=== PATIENT | male | born 1975 | race Caucasian/White ===

== ENCOUNTER 2016-12-06 18:43 | Emergency (ER) | payer MEDICAID ==
--- NOTE | 2016-12-06 19:50 | EDM.PDOC ---
ED HPI GENERAL MEDICAL PROBLEM - General Chief Complaint: General Stated Complaint: POSSIBLE HERNIA Time Seen by Provider: 12/06/16 19:00 Source of Information: Reports: Patient History Limitations: Reports: No limitations - History of Present Illness INITIAL COMMENTS - FREE TEXT/NARRATIVE: 41-year-old male with a right lower abdomen and groin pain for the past 3 days. It started after he was lifting a box, he had he felt some swelling in the area and has been putting heat packs and taking ibuprofen. It is still very painful today so thinks he has a hernia and wants it checked. No fevers or chills, no bowel changes. Onset: sudden (Pain started suddenly 3 days ago) Location: Reports: abdomen (Right lower quadrant and right groin) Quality: Reports: Sharp Severity: moderate Improves with: Reports: Movement Associated Symptoms: Reports: denies other symptoms right groin Pain Score (Numeric/FACES): 7 - Related Data Allergies Allergy/AdvReac Type Severity Reaction Status Date / Time codeine Allergy Intermediate Rash Verified 12/06/16 18:57 prednisone Allergy Intermediate Decreased Verified 12/06/16 18:57 Urine Output Home Meds: Home Meds Acetaminophen [Tylenol Extra Strength] 500 mg PO ASDIRECTED PRN 04/26/16 [ History] Gabapentin [Gabapentin] 400 mg PO TID 05/02/16 [History] Ibuprofen [Advil] 600 mg PO TID 06/08/16 [History] DULoxetine [Cymbalta] 60 mg PO BID 08/22/16 [History] traZODone HCl [Trazodone HCl] 50 mg PO BEDTIME 08/22/16 [History] Lisinopril 10 mg PO BID 12/06/16 [History] oxyCODONE HCl/Acetaminophen [oxyCODONE-Acetaminophen 5-325] 1 tab PO BID PRN 02/17 [History] Past Medical History - Past Health History Medical/Surgical History: Denies Medical/Surgical History HEENT History: Reports: Other (see below) Other HEENT History: dental caries Musculoskeletal History: Reports: Back pain, chronic Neurological History: Reports: Concussion Psychiatric History: Reports: Dementia - Infectious Disease History Infectious Disease History: Reports: Chicken pox - Past Surgical History Musculoskeletal Surgical History: Reports: Carpal tunnel, Other (see below) Other Musculoskeletal Surgeries/Procedures:: left thumb reconstruction Social & Family History - Tobacco Use Smoking Status *Q: Current Every Day Smoker Years of Tobacco use: 20 Packs/Tins Daily: 0.5 Second Hand Smoke Exposure: Yes - Caffeine Use Caffeine Use: Reports: Coffee, Energy drinks, Soda, Tea - Alcohol Use Days Per Week of Alcohol Use: 0 - Recreational Drug Use Recreational Drug Use: No ED ROS GENERAL - Review of Systems Review Of Systems: See Below Constitutional: Denies: fever, chills HEENT: Reports: No symptoms Respiratory: Denies: shortness of breath, cough Cardiovascular: Denies: Chest pain GI/Abdominal: Reports: Abdominal pain. Denies: Diarrhea, Nausea, Vomiting : Reports: no symptoms Skin: Reports: no symptoms Neurological: Denies: headache Psychiatric: Reports: No symptoms ED EXAM, GENERAL - Physical Exam Exam: See Below Exam Limited By: No limitations General Appearance: alert, no apparent distress Respiratory/Chest: no respiratory distress, lungs clear Cardiovascular: regular rate, rhythm GI/Abdominal: soft (Male) Exam: Other (Exam of the groin and scrotum revealed no evidence of hernia but he was very tender around the right inguinal canal) Back Exam: normal inspection Course - Vital Signs Last Recorded V/S: Last Vital Signs Temp 98.7 F 12/06/16 19:03 Pulse 110 H 12/06/16 20:01 Resp 20 12/06/16 20:01 BP 185/124 H 12/06/16 20:01 Pulse Ox 98 12/06/16 20:01 - Orders/Labs/Meds Orders: Active Orders 24 hr Category Date Time Status Abdomen Pelvis wo Cont [CT] Stat Exams 12/06/16 19:13 Taken - Re-Assessments/Exams Free Text/Narrative Re-Assessment/Exam: 12/06/16 19:49 Is no physical evidence right now of her hernia but it was recently reduced there could still be significant pain. A CT of the abdomen and pelvis was obtained to look for other sources of pain or inflammatory changes. 12/06/16 20:11 CT was normal. Patient feels that his pain is improved with pressure so he was given a six-inch Judd wrap to wrap around the waist for support. He recheck in 2 -4 days if not improving. Departure - Departure Time of Disposition: 20:20 Disposition: Home, Self-Care 01 Condition: good Clinical Impression: Strain of muscle of right groin region Instructions: Muscle Strain, [id number] Referrals: PCP,None [Primary Care Provider] - Forms: ED Department Discharge Care Plan Goals: Where wrap for comfort, ibuprofen for pain and increase activity as tolerated. Consider rechecking in 3-5 days if not improving satisfactorily. - My Orders Last 24 Hours: My Active Orders 12/06/16 19:13 Abdomen Pelvis wo Cont [CT] Stat - Assessment/Plan Last 24 Hours: My Active Orders 12/06/16 19:13 Abdomen Pelvis wo Cont [CT] Stat
[2016-12-06 20:02] VITALS: BP 185/124
== END 2016-12-06 20:20 | disposition home or self-care (01) ==
LOC: JP.ED 18:43
DX: S39.011A Strain of muscle, fascia and tendon of abdomen, initial encounter (principal); F17.210 Nicotine dependence, cigarettes, uncomplicated; Z88.5 Allergy status to narcotic agent; Z79.899 Other long term (current) drug therapy; X50.0XXA Overexertion from strenuous movement or load, initial encounter
CPT/HCPCS: 74176; 99284-25

== ENCOUNTER 2017-12-14 01:07 | Emergency (ER) | payer MEDICAID ==
[2017-12-14 01:19] VITALS: BP 147/122
[2017-12-14] MEDS ORDERED: Ketorolac 60 MG/2 ML SDV IM ONE (01:31)
[2017-12-14] MEDS ORDERED: Dental Adhesive 1 Tube DENT ONE (01:31)
--- NOTE | 2017-12-14 01:35 | EDM.PDOC ---
ED HPI GENERAL MEDICAL PROBLEM - General Chief Complaint: General Stated Complaint: TOOTHACHE Time Seen by Provider: 12/14/17 01:28 Source of Information: Reports: Patient, RN Notes Reviewed History Limitations: Reports: No Limitations - History of Present Illness INITIAL COMMENTS - FREE TEXT/NARRATIVE: 42-year-old gentleman presents emergency department day complaint of dental pain , he recently had a filling busk loose from one of his teeth earlier this evening now is in excruciating pain he does have appointment with dentistry tomorrow morning at 11:00 Right Lower Tooth/Teeth Pain Score (Numeric/FACES): 10 - Related Data Allergies Allergy/AdvReac Type Severity Reaction Status Date / Time codeine Allergy Intermediate Rash Verified 12/06/16 18:57 prednisone Allergy Intermediate Decreased Verified 12/06/16 18:57 Urine Output tramadol Allergy Rash Verified 12/14/17 01:20 Home Meds: Home Meds Gabapentin [Gabapentin] 800 mg PO QID 05/02/16 [History] Lisinopril 10 mg PO DAILY 12/06/16 [History] *Metoprolol 10 mg PO BID 12/14/17 [History] Past Medical History HEENT History: Reports: Other (See Below) Other HEENT History: dental caries Cardiovascular History: Reports: Hypertension Musculoskeletal History: Reports: Back Pain, Chronic Neurological History: Reports: Concussion Psychiatric History: Reports: Dementia - Infectious Disease History Infectious Disease History: Reports: Chicken Pox - Past Surgical History Musculoskeletal Surgical History: Reports: Carpal Tunnel, Other (See Below) Social & Family History - Tobacco Use Smoking Status *Q: Unknown Ever Smoked Years of Tobacco use: 20 Packs/Tins Daily: 0.5 Second Hand Smoke Exposure: Yes - Caffeine Use Caffeine Use: Reports: Coffee, Energy Drinks, Soda, Tea - Alcohol Use Days Per Week of Alcohol Use: 0 - Recreational Drug Use Recreational Drug Use: No ED ROS GENERAL - Review of Systems Review Of Systems: See Below Constitutional: Reports: No Symptoms HEENT: Reports: Dental Pain ED EXAM, GENERAL - Physical Exam Exam: See Below Free Text/Narrative:: Mouth mucosa is moist and pink he is missing a filling on tooth #28, very tender to touch around the tooth, no erythema or exudate noted in soft palate tongue is midline uvula is midline Exam Limited By: No Limitations General Appearance: Alert, Mild Distress Respiratory/Chest: No Respiratory Distress Course - Vital Signs Last Recorded V/S: Last Vital Signs Temp 94.3 F L 12/14/17 01:18 Pulse 95 12/14/17 01:18 Resp 16 12/14/17 01:18 BP 147/122 H 12/14/17 01:18 Pulse Ox 99 12/14/17 01:18 - Orders/Labs/Meds Meds: Medications Discontinued Medications Generic Name Dose Route Start Last Admin Trade Name Allan PRN Reason Stop Dose Admin Denture Adhesive 1 applic 12/14/17 01:31 12/14/17 01:41 Dentemp Custom DENT 12/14/17 01:32 1 applic ONETIME ONE Administration Ketorolac Tromethamine 60 mg 12/14/17 01:31 12/14/17 01:40 Toradol IM 12/14/17 01:32 60 mg ONETIME ONE Administration Departure - Departure Time of Disposition: 01:52 Disposition: Home, Self-Care 01 Condition: Good Clinical Impression: Pain, dental - Discharge Information Referrals: PCP,None [Primary Care Provider] - Forms: ED Department Discharge Additional Instructions: Use ibuprofen for baseline pain control, use hydrocodone for breakthrough pain, please follow-up with your dentist tomorrow morning at 11:00 - Assessment/Plan Plan: Assessment Acuity = acute Site and laterality = dental pain Etiology = loss of cavity tooth number 28th Manifestations = none Location of injury = Home Lab values = none Plan Provided Toradol injection for pain control [place] temp was used to create a temporary filling he will follow-up with his dentist tomorrow morning at 11:00, prescription written for hydrocodone 5/325 one tablet by mouth 3 times a day when necessary total #4 This note was dictated using [employer] voice recognition software please call with any questions on syntax or yancy.
== END 2017-12-14 02:00 | disposition home or self-care (01) ==
LOC: JP.ED 01:07
DX: K08.89 Other specified disorders of teeth and supporting structures (principal); I10 Essential (primary) hypertension; Z88.5 Allergy status to narcotic agent; Z79.899 Other long term (current) drug therapy
CPT/HCPCS: 96372; 99283-25; A9270-GY; J1885

== ENCOUNTER 2017-12-15 16:00 | Emergency (ER) | payer MEDICAID ==
[2017-12-15 16:40] VITALS: BP 152/109
--- NOTE | 2017-12-15 16:41 | EDM.PDOC ---
ED HPI GENERAL MEDICAL PROBLEM - General Chief Complaint: ENT Problem Stated Complaint: TOOTHACHE Time Seen by Provider: 12/15/17 16:25 Source of Information: Reports: Patient History Limitations: Reports: No Limitations - History of Present Illness INITIAL COMMENTS - FREE TEXT/NARRATIVE: 42-year-old male with a right mandibular dental pain for the last several days. He saw a dentist yesterday who removed his temporary filling and said he needs to just let it heal. It's very painful today. No significant swelling. Severity: Moderate Worsens with: Reports: Eating Associated Symptoms: Reports: No Other Symptoms right lower Pain Score (Numeric/FACES): 8 - Related Data Allergies Allergy/AdvReac Type Severity Reaction Status Date / Time codeine Allergy Intermediate Rash Verified 12/15/17 16:12 prednisone Allergy Intermediate Decreased Verified 12/15/17 16:12 Urine Output tramadol Allergy Rash Verified 12/15/17 16:12 Home Meds: Home Meds Gabapentin [Gabapentin] 800 mg PO QID 05/02/16 [History] Lisinopril 10 mg PO DAILY 12/06/16 [History] *Metoprolol 10 mg PO BID 12/14/17 [History] Amoxicillin 500 mg PO BID 12/15/17 [History] Methocarbamol 500 mg PO DAILY 12/15/17 [History] oxyCODONE HCl/Acetaminophen [oxyCODONE-Acetaminophen 5-325] 1 tab PO BID [History] Past Medical History HEENT History: Reports: Other (See Below) Other HEENT History: dental caries Cardiovascular History: Reports: Hypertension Musculoskeletal History: Reports: Back Pain, Chronic Neurological History: Reports: Concussion Psychiatric History: Reports: Dementia - Infectious Disease History Infectious Disease History: Reports: Chicken Pox - Past Surgical History Cardiovascular Surgical History: Reports: None Musculoskeletal Surgical History: Reports: Carpal Tunnel Social & Family History - Tobacco Use Smoking Status *Q: Current Every Day Smoker Years of Tobacco use: 20 Packs/Tins Daily: 0.4 Second Hand Smoke Exposure: Yes - Caffeine Use Caffeine Use: Reports: Coffee, Energy Drinks, Soda, Tea - Alcohol Use Days Per Week of Alcohol Use: 0 - Recreational Drug Use Recreational Drug Use: No ED ROS ENT - Review of Systems Review Of Systems: See Below Constitutional: Denies: Fever, Chills Respiratory: Denies: Shortness of Breath Cardiovascular: Denies: Chest Pain GI/Abdominal: Denies: Nausea, Vomiting ED EXAM, ENT - Physical Exam Exam: See Below Exam Limited By: No Limitations General Appearance: Alert, No Apparent Distress (Patient is not distressed but does look uncomfortable) Mouth/Throat: Other (The posterior aspect of the second canine of the right mandible appears fractured posteriorly with the dentin showing) Respiratory/Chest: No Respiratory Distress Course - Vital Signs Last Recorded V/S: Last Vital Signs Temp 97.3 F 12/15/17 16:16 Pulse 87 12/15/17 16:16 Resp 18 12/15/17 16:16 BP 152/109 H 12/15/17 16:16 Pulse Ox 100 12/15/17 16:16 - Re-Assessments/Exams Free Text/Narrative Re-Assessment/Exam: 12/15/17 16:39 This tooth looks like he needs to be repaired, or crowned. We'll fill out a dental referral for tomorrow morning, I gave him some additional Percocet to take for pain and he can continue his antibiotic. Departure - Departure Time of Disposition: 17:04 Disposition: Home, Self-Care 01 Condition: Good Clinical Impression: Fracture of tooth Qualifiers: Encounter type: initial encounter Fracture type: closed Qualified Code(s): S02.5XXA - Fracture of tooth (traumatic), initial encounter for closed fracture - Discharge Information Instructions: Tooth Injuries, [id number] Referrals: PCP,None [Primary Care Provider] - Forms: ED Department Discharge Care Plan Goals: Continue with antibiotics, take pain medication as needed and work in to the dental clinic tomorrow morning to repair your tooth.
== END 2017-12-15 17:05 | disposition home or self-care (01) ==
LOC: JP.ED 16:00
DX: S02.5XXA Fracture of tooth (traumatic), initial encounter for closed fracture (principal); I10 Essential (primary) hypertension; F17.210 Nicotine dependence, cigarettes, uncomplicated; Z88.8 Allergy status to other drugs, medicaments and biological substances; Z88.5 Allergy status to narcotic agent; Z79.899 Other long term (current) drug therapy; X58.XXXA Exposure to other specified factors, initial encounter
CPT/HCPCS: 99283

== ENCOUNTER 2017-12-17 17:43 | Emergency (ER) | payer OTHER, MEDICAID ==
[2017-12-17 18:21] VITALS: BP 160/105
[2017-12-17] MEDS ORDERED: Dental Adhesive 1 Tube DENT ONE (18:29)
--- NOTE | 2017-12-17 18:35 | EDM.PDOC ---
ED HPI GENERAL MEDICAL PROBLEM - General Chief Complaint: ENT Problem Stated Complaint: TOOTHACHE Time Seen by Provider: 12/17/17 18:24 Source of Information: Reports: Patient, Old Records, RN Notes Reviewed History Limitations: Reports: No Limitations - History of Present Illness INITIAL COMMENTS - FREE TEXT/NARRATIVE: 42-year-old gentleman presents emergency department today for ongoing dental pain, I had evaluated him a few days prior tooth #27 I believe was packed with a [place] temp, he has subsequently followed up with dentistry this tooth has been pulled, he is currently on antibiotics, his biggest issue now is the tooth directly behind that has now broken off and is experiencing pain - Related Data Allergies Allergy/AdvReac Type Severity Reaction Status Date / Time codeine Allergy Intermediate Rash Verified 12/17/17 17:58 prednisone Allergy Intermediate Decreased Verified 12/17/17 17:58 Urine Output tramadol Allergy Rash Verified 12/17/17 17:58 Home Meds: Home Meds Gabapentin [Gabapentin] 800 mg PO QID 05/02/16 [History] Lisinopril 10 mg PO DAILY 12/06/16 [History] *Metoprolol 10 mg PO BID 12/14/17 [History] Amoxicillin 500 mg PO BID 12/15/17 [History] Methocarbamol 500 mg PO DAILY 12/15/17 [History] oxyCODONE HCl/Acetaminophen [oxyCODONE-Acetaminophen 5-325] 1 tab PO BID [History] Past Medical History HEENT History: Reports: Other (See Below) Other HEENT History: dental caries Cardiovascular History: Reports: Hypertension Musculoskeletal History: Reports: Back Pain, Chronic Neurological History: Reports: Concussion Psychiatric History: Reports: Dementia - Infectious Disease History Infectious Disease History: Reports: Chicken Pox - Past Surgical History Cardiovascular Surgical History: Reports: None Musculoskeletal Surgical History: Reports: Carpal Tunnel Social & Family History - Tobacco Use Smoking Status *Q: Current Every Day Smoker Years of Tobacco use: 20 Packs/Tins Daily: 0.1 Second Hand Smoke Exposure: Yes - Caffeine Use Caffeine Use: Reports: Coffee, Energy Drinks, Soda, Tea - Alcohol Use Days Per Week of Alcohol Use: 0 - Recreational Drug Use Recreational Drug Use: No ED ROS ENT - Review of Systems Review Of Systems: See Below Constitutional: Reports: No Symptoms HEENT: Reports: Dental Pain Respiratory: Reports: No Symptoms Cardiovascular: Reports: No Symptoms GI/Abdominal: Reports: No Symptoms ED EXAM, ENT - Physical Exam Exam: See Below Text/Narrative:: Mouth mucosa is moist and pink no erythema or exudate noted in soft palate tongue is midline uvula is midline tooth #27 is missing tooth #28 has been fracture. It is tender to the touch Exam Limited By: No Limitations General Appearance: Alert, WD/WN, No Apparent Distress Respiratory/Chest: No Respiratory Distress Course - Vital Signs Last Recorded V/S: Last Vital Signs Temp 96.8 F 12/17/17 18:20 Pulse 112 H 12/17/17 18:20 Resp 16 12/17/17 18:20 BP 160/105 H 12/17/17 18:20 Pulse Ox 98 12/17/17 18:20 - Orders/Labs/Meds Orders: Active Orders 24 hr Category Date Time Status Dental Adhesive [Dentemp Custom] Med 12/17/17 18:29 Once 1 applic DENT ONETIME ONE Departure - Departure Time of Disposition: 18:35 Disposition: Home, Self-Care 01 Condition: Good Clinical Impression: Fracture of tooth Qualifiers: Encounter type: initial encounter Fracture type: closed Qualified Code(s): S02.5XXA - Fracture of tooth (traumatic), initial encounter for closed fracture - Discharge Information Referrals: PCP,None [Primary Care Provider] - Additional Instructions: Use ibuprofen for baseline pain control, use Percocet for breakthrough pain please follow-up with dentistry on Wednesday at 8:15 - My Orders Last 24 Hours: My Active Orders 12/17/17 18:29 Dental Adhesive [Dentemp Custom] 1 applic DENT ONETIME ONE - Assessment/Plan Last 24 Hours: My Active Orders 12/17/17 18:29 Dental Adhesive [Dentemp Custom] 1 applic DENT ONETIME ONE Plan: Assessment Acuity = acute Site and laterality = tooth fracture #28 Etiology = dental caries Manifestations = pain Location of injury = Home Lab values = none Plan Prescription written for Percocet 5/325 one tab by mouth 3 times a day when necessary total #20 referral was written for dentistry Wednesday at 8:15 This note was dictated using [employer] voice recognition software please call with any questions on syntax or yancy.
== END 2017-12-17 18:56 | disposition home or self-care (01) ==
LOC: JP.ED 17:43
DX: S02.5XXA Fracture of tooth (traumatic), initial encounter for closed fracture (principal); I10 Essential (primary) hypertension; F17.210 Nicotine dependence, cigarettes, uncomplicated; Z79.899 Other long term (current) drug therapy; Z88.5 Allergy status to narcotic agent; X58.XXXA Exposure to other specified factors, initial encounter
CPT/HCPCS: 99283

== ENCOUNTER 2018-11-08 13:36 | Emergency (ER) | payer MEDICAID, OTHER ==
[2018-11-08 14:05] VITALS: BP 132/84
--- NOTE | 2018-11-08 15:05 | EDM.PDOC ---
ED HPI GENERAL MEDICAL PROBLEM - General Chief Complaint: Skin Complaint Stated Complaint: INFECTION ON LEG Time Seen by Provider: 11/08/18 14:56 Source of Information: Reports: Patient, RN Notes Reviewed History Limitations: Reports: No Limitations - History of Present Illness INITIAL COMMENTS - FREE TEXT/NARRATIVE: 43-year-old gentleman presents emergency department today complaint of rash in his groin he's notices gotten worse over the last 24 hours it is itchy Right Groin Pain Score (Numeric/FACES): 6 - Related Data Allergies Allergy/AdvReac Type Severity Reaction Status Date / Time codeine Allergy Intermediate Rash Verified 11/08/18 14:22 prednisone Allergy Intermediate Decreased Verified 11/08/18 14:22 Urine Output tramadol Allergy Rash Verified 11/08/18 14:22 Home Meds: Home Meds Gabapentin 1,200 mg PO TID 05/02/16 [History] Lisinopril 10 mg PO DAILY 12/06/16 [History] Methocarbamol 500 mg PO DAILY 12/15/17 [History] oxyCODONE HCl/Acetaminophen [oxyCODONE-Acetaminophen 5-325] 1 tab PO BID [History] Ibuprofen 600 mg PO TID PRN 03/31/18 [History] Metoprolol Succinate 25 mg PO DAILY 03/31/18 [History] Zolpidem [Ambien] 5 mg PO BEDTIME PRN 03/31/18 [History] traZODone HCl [Trazodone HCl] 150 mg PO DAILY 03/31/18 [History] Clotrimazole [Clotrimazole 1%] 45 gm .XX TID #1 tube 11/08/18 [Rx] Past Medical History HEENT History: Reports: Other (See Below) Other HEENT History: dental caries Cardiovascular History: Reports: Hypertension Musculoskeletal History: Reports: Back Pain, Chronic Neurological History: Reports: Concussion Psychiatric History: Reports: Dementia - Infectious Disease History Infectious Disease History: Reports: Chicken Pox - Past Surgical History Cardiovascular Surgical History: Reports: None Musculoskeletal Surgical History: Reports: Carpal Tunnel Social & Family History - Tobacco Use Smoking Status *Q: Current Every Day Smoker Years of Tobacco use: 11 Packs/Tins Daily: 0.3 - Caffeine Use Caffeine Use: Reports: Coffee, Energy Drinks, Soda, Tea - Recreational Drug Use Recreational Drug Use: No ED ROS GENERAL - Review of Systems Review Of Systems: See Below Skin: Reports: Rash ED EXAM, SKIN/RASH Exam: See Below Text/Narrative:: Examination of the groin there is an erythematous region on the right groin partially encompassing the scrotum there's a few satellite lesions appreciated as well Course - Vital Signs Last Recorded V/S: Last Vital Signs Temp 97.7 F 11/08/18 14:24 Pulse 92 11/08/18 14:24 Resp 16 11/08/18 14:24 BP 132/84 11/08/18 14:24 Pulse Ox 98 11/08/18 14:24 Departure - Departure Time of Disposition: 15:04 Disposition: Home, Self-Care 01 Condition: Good Clinical Impression: Bry itch - Discharge Information Prescriptions: Clotrimazole [Clotrimazole 1%] 45 gm .XX TID #1 tube Referrals: Edward Landaverde MD [Primary Care Provider] - Additional Instructions: Your medications have been faxed to [facility] apply to the affected area 3 times a day until clear follow up with primary care as needed - Assessment/Plan Plan: Assessment Acuity = acute Site and laterality = tinea corpus Etiology = fungus Manifestations = pruritus Location of injury = Home Lab values = none Plan Prescription transmitted to [facility] for Chlortrimazole 1% apply to affected area 3 times a day follow-up primary care as needed This note was dictated using [employer] voice recognition software please call with any questions on syntax or grammar.
== END 2018-11-08 15:18 | disposition home or self-care (01) ==
LOC: JP.ED 13:36
DX: B35.6 Tinea cruris (principal); B35.9 Dermatophytosis, unspecified; I10 Essential (primary) hypertension; F17.210 Nicotine dependence, cigarettes, uncomplicated; Z88.5 Allergy status to narcotic agent; Z88.8 Allergy status to other drugs, medicaments and biological substances; Z79.899 Other long term (current) drug therapy
CPT/HCPCS: 99283

== ENCOUNTER 2020-04-28 16:50 | Emergency (ER) | payer OTHER ==
[2020-04-28 16:59] VITALS: BP 158/92; PULSE 107
--- NOTE | 2020-04-28 16:59 | EDM.PDOC ---
ED HPI GENERAL MEDICAL PROBLEM - General Chief Complaint: General Stated Complaint: RT RIB PAIN Time Seen by Provider: 04/28/20 17:10 Source of Information: Reports: Patient, Old Records, RN History Limitations: Reports: No Limitations - History of Present Illness INITIAL COMMENTS - FREE TEXT/NARRATIVE: 45 yo male is here with pleuritic R ant/lateral chest pain for a week. He denies injury. His primary, Dr. Landaverde, was not available so he went to Dr. Wang and had a negative CXR. No blood work was done. Damon made a follow up appt with Dr. Landaverde for this next . Damon states that Dr. Landaverde told him he could use extra prescription pain meds in the interim, but now he is out. He has not been SOB, no fever and has no palpable pain. No calf pain or LE edema. Damon states that Dr. Wang was concerned about lung CA and a CT scan was discussed, but not yet ordered. Onset Date: 04/21/20 Duration: Week(s): (1), Constant Location: Reports: Chest (R ant/lat) Quality: Reports: Sharp, Stabbing Severity: Moderate Improves with: Reports: Medication Worsens with: Reports: Other (unknown cause, deep breathing worsens. 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: Other (see below) (oxycodone) - Related Data Allergies Allergy/AdvReac Type Severity Reaction Status Date / Time codeine Allergy Intermediate Rash Verified 04/28/20 17:01 prednisone Allergy Intermediate Decreased Verified 04/28/20 17:01 Urine Output tramadol Allergy Rash Verified 04/28/20 17:01 Home Meds: Home Meds Lisinopril 10 mg PO DAILY 12/06/16 [History] methocarbamoL [Methocarbamol] 500 mg PO BID 12/15/17 [History] oxyCODONE HCl/Acetaminophen [oxyCODONE-Acetaminophen 5-325] 1 tab PO BID 12/15/17 [History] Ibuprofen 600 mg PO TID PRN 03/31/18 [History] Metoprolol Succinate 25 mg PO BID 03/31/18 [History] Zolpidem [Ambien] 5 mg PO BEDTIME PRN 03/31/18 [History] traZODone HCl [Trazodone HCl] 150 mg PO BEDTIME 03/31/18 [History] Clotrimazole [Clotrimazole 1%] 45 gm .XX TID #1 tube 11/08/18 [Rx] Past Medical History HEENT History: Reports: Other (See Below) Other HEENT History: dental caries Cardiovascular History: Reports: Hypertension Musculoskeletal History: Reports: Back Pain, Chronic Neurological History: Reports: Concussion Psychiatric History: Reports: Dementia - Infectious Disease History Infectious Disease History: Reports: Chicken Pox - Past Surgical History Cardiovascular Surgical History: Reports: None Musculoskeletal Surgical History: Reports: Carpal Tunnel Social & Family History - Caffeine Use Caffeine Use: Reports: Coffee ED ROS GENERAL - Review of Systems Review Of Systems: See Below Constitutional: Reports: No Symptoms HEENT: Reports: No Symptoms Respiratory: Reports: Pleuritic Chest Pain. Denies: Shortness of Breath, Wheezing, Cough, Sputum, Hemoptysis Cardiovascular: Reports: No Symptoms GI/Abdominal: Reports: No Symptoms Musculoskeletal: Reports: No Symptoms Skin: Reports: No Symptoms ED EXAM, GENERAL - Physical Exam Exam: See Below Exam Limited By: No Limitations General Appearance: Alert, WD/WN, No Apparent Distress Eye Exam: Bilateral Eye: Normal Inspection Ears: Hearing Grossly Normal Ear Exam: Bilateral Ear: Auricle Normal Nose: Normal Inspection, No Blood Throat/Mouth: Normal Inspection, Normal Lips, Normal Voice, No Airway Compromise Head: Atraumatic, Normocephalic Neck: Normal Inspection Respiratory/Chest: No Respiratory Distress, Lungs Clear, Normal Breath Sounds, No Accessory Muscle Use, Chest Non-Tender Cardiovascular: Regular Rate, Rhythm, No Edema Extremities: Normal Inspection Neurological: Alert, Oriented, CN II-XII Intact, Normal Cognition Psychiatric: Normal Affect, Normal Mood Skin Exam: Warm, Dry, Intact, Normal Color, No Rash Course - Vital Signs Last Recorded V/S: Last Vital Signs Temp 36.8 C 04/28/20 17:08 Pulse 107 H 04/28/20 17:08 Resp 16 04/28/20 17:08 BP 158/92 H 04/28/20 17:08 Pulse Ox 98 04/28/20 17:08 - Orders/Labs/Meds Labs: Laboratory Tests 04/28/20 Range/Units 17:18 D-Dimer, Quantitative 130 (0.0-400.0) ng/mL Meds: Medications Discontinued Medications Generic Name Dose Route Start Last Admin Trade Name Allan PRN Reason Stop Dose Admin Hydrocodone Bitart/Acetaminophen 1 tab 04/28/20 17:18 04/28/20 17:26 [place] 325-5 Mg PO 04/28/20 17:19 1 tab ONETIME ONE Administration Departure - Departure Time of Disposition: 17:58 Disposition: Home, Self-Care 01 Condition: Good Clinical Impression: Pleuritic chest pain - Discharge Information *PRESCRIPTION DRUG MONITORING PROGRAM REVIEWED*: No *COPY OF PRESCRIPTION DRUG MONITORING REPORT IN PATIENT JOYCE: No Referrals: Edwadr Landaverde MD [Primary Care Provider] - Forms: ED Department Discharge Additional Instructions: Take ibuprofen 600 mg every 6 hrs with food. Add either acetaminophen OR [place] for added relief. Keep your appt with Dr. Landaverde for Wednesday. Sepsis Event Note (ED) - Focused Exam Vital Signs: Vital Signs Temp Pulse Resp BP Pulse Ox 04/28/20 17:08 36.8 C 107 H 16 158/92 H 98 04/28/20 16:57 36.8 C 107 H 16 158/92 H 98
[2020-04-28] MEDS ORDERED: Acetaminophen/HYDROcodone 325-5 MG Tab PO ONE (17:18)
== END 2020-04-28 18:06 | disposition home or self-care (01) ==
LOC: JP.ED 16:50
DX: R07.81 Pleurodynia (principal); F03.90 Unspecified dementia, unspecified severity, without behavioral disturbance, psychotic disturbance, mood disturbance, and anxiety; I10 Essential (primary) hypertension; Z88.5 Allergy status to narcotic agent; Z88.8 Allergy status to other drugs, medicaments and biological substances; Z79.899 Other long term (current) drug therapy
CPT/HCPCS: 36415; 85379; 99284; A9270; 99283

== ENCOUNTER 2020-06-20 12:16 | Emergency (ER) | payer MEDICAID, OTHER ==
[2020-06-20 13:15] VITALS: BP 142/109; PULSE 95
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
[2020-06-20] MEDS ORDERED: Bacitracin Oint 1 GM U/D Packet TOP ONE (14:11)
[2020-06-20] MEDS ORDERED: Lidocaine 1% with EPINEPHrine 1:100,000 50 ML MDV SUBCUT STA (14:14)
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
== END 2020-06-20 15:02 | disposition home or self-care (01) ==
LOC: JP.ED 12:16
DX: S06.9X1A Unspecified intracranial injury with loss of consciousness of 30 minutes or less, initial encounter (principal); I10 Essential (primary) hypertension; F17.290 Nicotine dependence, other tobacco product, uncomplicated; Z88.5 Allergy status to narcotic agent; Z88.8 Allergy status to other drugs, medicaments and biological substances; Z79.899 Other long term (current) drug therapy; Y04.2XXA Assault by strike against or bumped into by another person, initial encounter
CPT/HCPCS: 12001; 70450; 70450-26; 70486; 70486-26; 99282; 99284-25

== ENCOUNTER 2020-06-21 11:36 | Emergency (ER) | payer MEDICAID ==
[2020-06-21 12:05] VITALS: BP 153/89; PULSE 84
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
== END 2020-06-21 13:42 | disposition home or self-care (01) ==
LOC: JP.ED 11:36
DX: M62.838 Other muscle spasm (principal); S00.93XA Contusion of unspecified part of head, initial encounter; I10 Essential (primary) hypertension; F41.9 Anxiety disorder, unspecified; F32.9 Major depressive disorder, single episode, unspecified; F17.210 Nicotine dependence, cigarettes, uncomplicated; Z79.899 Other long term (current) drug therapy; Z88.5 Allergy status to narcotic agent; Z88.8 Allergy status to other drugs, medicaments and biological substances
CPT/HCPCS: 99284

== ENCOUNTER 2020-09-14 13:29 | Emergency (ER) | payer MEDICAID ==
[2020-09-14 14:03] VITALS: BP 143/93; PULSE 105
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
== END 2020-09-14 14:33 | disposition home or self-care (01) ==
LOC: JP.ED 13:29
DX: S46.811A Strain of other muscles, fascia and tendons at shoulder and upper arm level, right arm, initial encounter (principal); I10 Essential (primary) hypertension; F41.9 Anxiety disorder, unspecified; F32.9 Major depressive disorder, single episode, unspecified; F17.210 Nicotine dependence, cigarettes, uncomplicated; Z88.8 Allergy status to other drugs, medicaments and biological substances; Z88.5 Allergy status to narcotic agent; Z79.899 Other long term (current) drug therapy; X50.0XXA Overexertion from strenuous movement or load, initial encounter
CPT/HCPCS: 99283

== ENCOUNTER 2020-09-17 12:53 | Emergency (ER) | payer OTHER, MEDICAID ==
[2020-09-17 14:28] VITALS: BP 164/116; PULSE 87
[2020-09-17] MEDS ORDERED: Ketorolac 60 MG/2 ML SDV IM ONE (14:48)
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
== END 2020-09-17 15:04 | disposition home or self-care (01) ==
LOC: JP.ED 12:53
DX: S66.911A Strain of unspecified muscle, fascia and tendon at wrist and hand level, right hand, initial encounter (principal); S80.11XA Contusion of right lower leg, initial encounter; F41.9 Anxiety disorder, unspecified; F32.9 Major depressive disorder, single episode, unspecified; I10 Essential (primary) hypertension; Z88.5 Allergy status to narcotic agent; Z88.8 Allergy status to other drugs, medicaments and biological substances; Z79.899 Other long term (current) drug therapy; V49.40XA Driver injured in collision with unspecified motor vehicles in traffic accident, initial encounter
CPT/HCPCS: 96372; 99283; J1885; 99282

== ENCOUNTER 2021-11-21 22:04 | Emergency (ER) | payer MEDICAID ==
[2021-11-21 23:43] VITALS: BP 174/125; PULSE 110
== END 2021-11-21 23:52 | disposition home or self-care (01) ==
LOC: JP.ED 22:04
DX: M54.50 Low back pain, unspecified (principal); I10 Essential (primary) hypertension; Z88.5 Allergy status to narcotic agent; Z88.8 Allergy status to other drugs, medicaments and biological substances; Z72.0 Tobacco use; Z79.899 Other long term (current) drug therapy
CPT/HCPCS: 36415; 74176; 80053; 80305-QW; 81001; 83690; 85025; 99284-25

== ENCOUNTER 2022-06-03 13:47 | Emergency (ER) | payer MEDICAID ==
[2022-06-03] MEDS ORDERED: Sodium Chloride 0.9% 10 ML Syringe FLUSH PRN (13:52)
[2022-06-03] MEDS ORDERED: Aspirin 81 MG Tab.Chew PO ONE (14:17)
[2022-06-03] MEDS: Nitroglycerin 0.4 MG Tab.SL SL PRN ×2 (14:24→14:45)
[2022-06-03 14:36] LABS: ESTIMATED GFR 84 mL/min (>60); TROPONIN I HIGH SENSITIVITY 14.1 pg/mL (<=60.3)
[2022-06-03] MEDS ORDERED: Iopamidol 755 Mg/ML 100 ML Bottle IV SCH (15:00)
[2022-06-03] MEDS ORDERED: Sodium Chloride 0.9% 100 ML IV SCH (15:00)
[2022-06-03 15:37] VITALS: BP 143/103; PULSE 89
== END 2022-06-03 17:07 | disposition home or self-care (01) ==
LOC: JP.ED 13:47
DX: R07.89 Other chest pain (principal); I10 Essential (primary) hypertension; Z88.5 Allergy status to narcotic agent; Z88.8 Allergy status to other drugs, medicaments and biological substances; Z79.899 Other long term (current) drug therapy
CPT/HCPCS: 36415; 71045; 71275; 74175; 80053; 84484; 85025; 85379; 93005; 99285; A9270-GY; J3490; Q9967

== ENCOUNTER 2023-02-06 18:11 | Emergency (ER) | payer MEDICAID ==
[2023-02-06 18:23] VITALS: BP 151/109; PULSE 100
[2023-02-06] MEDS ORDERED: Ketorolac 30 MG/ML SDV IM ONE (19:16)
== END 2023-02-06 20:00 | disposition home or self-care (01) ==
LOC: JP.ED 18:11
DX: G89.29 Other chronic pain (principal); M54.50 Low back pain, unspecified; I10 Essential (primary) hypertension; F17.210 Nicotine dependence, cigarettes, uncomplicated; Z88.5 Allergy status to narcotic agent; Z88.8 Allergy status to other drugs, medicaments and biological substances; Z79.899 Other long term (current) drug therapy
CPT/HCPCS: 96372; 99283; J1885

== ENCOUNTER 2024-01-17 09:39 | Emergency (ER) | payer MEDICAID ==
[2024-01-17 10:03] VITALS: BP 158/111; PULSE 103
[2024-01-17 10:32] LABS: APPEARANCE,URINE CLEAR (CLEAR); BILIRUBIN,URINE NEGATIVE (NEGATIVE); COLOR,URINE YELLOW (YELLOW); GLUCOSE,URINE NEGATIVE (NEGATIVE); KETONES,URINE NEGATIVE (NEGATIVE); LEUKOCYTE ESTERASE,URINE NEGATIVE (NEGATIVE); NITRITE,URINE NEGATIVE (NEGATIVE); OCCULT BLOOD,URINE NEGATIVE (NEGATIVE); PROTEIN,URINE NEGATIVE (NEGATIVE); UROBILINOGEN,URINE 0.2 EU/dL (0.2-1.0)
[2024-01-17 10:36] LABS: BASOPHILS ABSOLUTE AUTO 0.03 K/uL (0.00-0.10); BASOPHILS PERCENT AUTO 0.4 % (0.1-1.3); EOSINOPHILS PERCENT AUTO 0.1 % (0.0-5.4); HEMOGLOBIN 16.2 g/dL (12.9-16.9); IMMATURE GRAN ABSOLUTE AUTO 0.03 K/uL (0.00-0.23); IMMATURE GRAN PERCENT AUTO 0.4 % (0.0-0.7); LYMPHOCYTES PERCENT AUTO 13.6 % (11.4-47.7); MEAN CORPUSCULAR HEMOGLOBIN 33.5 pg (31.6-35.5); MEAN CORPUSCULAR HGB CONC 36.8 g/dL (31.6-35.5); MEAN CORPUSCULAR VOLUME 91.1 fL (81.4-99.0); MONOCYTES ABSOLUTE AUTO 0.37 K/uL (0.20-0.90); MONOCYTES PERCENT AUTO 4.6 % (3.3-12.6); NEUTROPHILS ABSOLUTE AUTO 6.57 K/uL (1.0-7.6); NEUTROPHILS PERCENT AUTO 80.9 % (40.0-78.1); PLATELET COUNT,PLT 191 K/uL (130-375); RED BLOOD CELL COUNT 4.83 M/uL (4.14-5.76); WHITE BLOOD CELL COUNT,WBC 8.1 K/uL (3.2-11.0)
[2024-01-17 10:37] LABS: EOSINOPHILS ABSOLUTE AUTO 0.01 K/uL (0.00-0.40)
[2024-01-17 10:43] LABS: AMORPHOUS SEDIMENT,URINE RARE; AMPHETAMINES SCREEN, URINE NEGATIVE (NEGATIVE); BACTERIA,URINE NOT SEEN; BARBITURATE SCREEN,URINE NEGATIVE (NEGATIVE); BENZODIAZEPINES SCREEN,URINE NEGATIVE (NEGATIVE); EPITHELIAL CELLS,URINE NOT SEEN; METHADONE SCREEN, URINE NEGATIVE (NEGATIVE); METHAMPHETAMINES SCREEN, URINE NEGATIVE (NEGATIVE); MUCUS,URINE NOT SEEN; OXYCODONE SCREEN,URINE NEGATIVE (NEGATIVE); PROPOXYPHENE SCREEN,URINE NEGATIVE (NEGATIVE); RBC,URINE 0-5 (0-5); THC SCREEN,URINE 50 NG/ML NEGATIVE (NEGATIVE); WBC,URINE NOT SEEN (0-5)
[2024-01-17 11:07] LABS: A/G RATIO 1.3 (1.2-2.2); ALANINE AMINOTRANSFERASE,ALT 20 U/L (12-78); ALBUMIN 3.9 g/dL (3.4-5.0); ALKALINE PHOSPHATASE 88 U/L (46-116); ASPARTATE AMNIOTRANSFERASE,AST 16 U/L (15-37); BILIRUBIN TOTAL 0.7 mg/dL (0.2-1.0); BLOOD UREA NITROGEN,BUN 10 mg/dL (7-18); CALCIUM 8.8 mg/dL (8.5-10.1); CARBON DIOXIDE,CO2 28 mmol/L (21-32); CHLORIDE,CL 100 mmol/L (100-108); EST CRCL DRUG DOSING (CG) 83.05 mL/min; ESTIMATED GFR 93 mL/min (>60); GLUCOSE RANDOM 125 mg/dL (74-106); POTASSIUM,K 3.7 mmol/L (3.6-5.2); SODIUM,NA 136 mmol/L (140-148)
[2024-01-17 11:11] LABS: ANION GAP 11.7 mmol/L (5.0-14.0)
[2024-01-17] MEDS: Nicotine 21 MG/24 Hr Patch TRDERM ONE (13:14)
[2024-01-17] MEDS: OLANZapine 5 MG Tab PO SCH (13:14)
== END 2024-01-17 13:45 | disposition home or self-care (01) ==
LOC: JP.ED 09:39
DX: R44.0 Auditory hallucinations (principal); I10 Essential (primary) hypertension; I25.2 Old myocardial infarction; F17.210 Nicotine dependence, cigarettes, uncomplicated; Z88.5 Allergy status to narcotic agent; Z88.8 Allergy status to other drugs, medicaments and biological substances; Z88.6 Allergy status to analgesic agent; Z86.19 Personal history of other infectious and parasitic diseases
CPT/HCPCS: 36415; 80053; 80305; 81001; 84443; 85025; 99284; A9270

== ENCOUNTER 2024-01-23 08:57 | Emergency (ER) | payer MEDICAID ==
[2024-01-23 09:35] LABS: HEMOGLOBIN 16.2 g/dL (12.9-16.9); WHITE BLOOD CELL COUNT,WBC 13.2 K/uL (3.2-11.0)
[2024-01-23 09:38] LABS: PLATELET COUNT,PLT 173 K/uL (130-375)
[2024-01-23 09:41] LABS: BAND ABSOLUTE MAN 0.26 K/uL; BAND PERCENT MAN 2 % (5-11); LYMPHOCYTES ABSOLUTE MAN 1.58 K/uL (0.8-3.3); LYMPHOCYTES PERCENT MAN 12 % (24-44); MONOCYTES ABSOLUTE MAN 0.66 K/uL (0.20-0.90); MONOCYTES PERCENT MAN 5 % (2-6); NEUTROPHILS ABSOLUTE MAN 10.69 K/uL (1.0-7.6); SEG NEUTROPHILS PERCENT MAN 81 % (36-66)
[2024-01-23 09:43] LABS: BLOOD UREA NITROGEN,BUN 15 mg/dL (7-18); CALCIUM 8.9 mg/dL (8.5-10.1); CARBON DIOXIDE,CO2 29 mmol/L (21-32); CHLORIDE,CL 101 mmol/L (100-108); ESTIMATED GFR 93 mL/min (>60); GLUCOSE RANDOM 117 mg/dL (74-106); POTASSIUM,K 4.2 mmol/L (3.6-5.2); SODIUM,NA 139 mmol/L (140-148)
[2024-01-23 09:44] LABS: ANION GAP 13.2 mmol/L (5.0-14.0)
[2024-01-23 09:49] VITALS: BP 140/106; PULSE 111
[2024-01-23] MEDS: OLANZapine 5 MG Tab PO ONE (09:58)
[2024-01-23 10:26] LABS: AMPHETAMINES SCREEN, URINE NEGATIVE (NEGATIVE); BARBITURATE SCREEN,URINE NEGATIVE (NEGATIVE); BENZODIAZEPINES SCREEN,URINE NEGATIVE (NEGATIVE); METHADONE SCREEN, URINE NEGATIVE (NEGATIVE); METHAMPHETAMINES SCREEN, URINE NEGATIVE (NEGATIVE); OXYCODONE SCREEN,URINE NEGATIVE (NEGATIVE); PROPOXYPHENE SCREEN,URINE NEGATIVE (NEGATIVE); THC SCREEN,URINE 50 NG/ML NEGATIVE (NEGATIVE)
== END 2024-01-23 15:55 | disposition other institution (70) ==
LOC: JP.ED 08:57
DX: F20.9 Schizophrenia, unspecified (principal); I10 Essential (primary) hypertension; I25.2 Old myocardial infarction; F17.200 Nicotine dependence, unspecified, uncomplicated; Z88.5 Allergy status to narcotic agent; Z88.8 Allergy status to other drugs, medicaments and biological substances; Z88.6 Allergy status to analgesic agent
CPT/HCPCS: 36415; 80048; 80143; 80179; 80305; 80307; 85025; 99285; A9270

== ENCOUNTER 2024-03-26 14:41 | Emergency (ER) | payer MEDICAID ==
[2024-03-26 14:57] VITALS: BP 143/109; PULSE 109
== END 2024-03-26 15:42 | disposition home or self-care (01) ==
LOC: JP.ED 14:41
DX: H60.01 Abscess of right external ear (principal); F17.210 Nicotine dependence, cigarettes, uncomplicated; I10 Essential (primary) hypertension; I25.2 Old myocardial infarction; Z79.899 Other long term (current) drug therapy; Z88.5 Allergy status to narcotic agent; Z88.6 Allergy status to analgesic agent; Z88.8 Allergy status to other drugs, medicaments and biological substances
CPT/HCPCS: 10060; 87070; 87077; 87186; 87205; 99283; 99283-25

== ENCOUNTER 2024-09-19 14:54 | Emergency (ER) | payer MEDICAID, OTHER ==
[2024-09-19 15:45] VITALS: BP 150/108; PULSE 120
[2024-09-19] MEDS: Lidocaine 1% 5 ML VIAL INJECT ONE (16:31)
== END 2024-09-19 17:11 | disposition home or self-care (01) ==
LOC: JP.ED 14:54
DX: H60.02 Abscess of left external ear (principal); I10 Essential (primary) hypertension; I25.10 Atherosclerotic heart disease of native coronary artery without angina pectoris; I25.2 Old myocardial infarction; Z79.899 Other long term (current) drug therapy; Z88.5 Allergy status to narcotic agent; Z88.8 Allergy status to other drugs, medicaments and biological substances
CPT/HCPCS: 69000; 87070; 87205; 99283-25